=== PATIENT | male | born 1970 | race Caucasian/White ===

== ENCOUNTER 2019-12-11 10:24 | Day surgery (SDC) | payer OTHER, SELFPAY ==
--- NOTE | 2019-12-11 | PATH_ITS ---
[facility] Accession Number: [id number] . 01 Material submitted: . colon - DESCENDING COLON POLYP . 02 Diagnosis: Descending Colon, Polyp: Tubular adenoma. MRV 12/12/2019 1319 Local . 02 Electronically signed: . Dionte Stoner MD, PhD, Pathologist NPI- [id number] . 01 Gross description: . DESCENDING COLON POLYP: Received in formalin is 1 fragment(s) of [place], soft tissue measuring 0.3 x 0.2 x 0.2 cm submitted entirely in 1 cassette(s) /[facility] [place] 12/11/2019 2159 Local . 02 Pathologist provided ICD-10: D12.4 . 02 CPT . 260871 Performed at: 01 [facility] [place] [address] [id number] MD Luis E Walker MD Phone: [phone] Performed at: 02 [facility] [place] [address] [place], [place] [id number] MD Koki Busch MD Phone: [phone]
[2019-12-11 10:48] VITALS: BP 138/88; PULSE 61; RESP 16; TEMP 36.9; O2SAT 100; BMI 26.1
[2019-12-11] MEDS: SODIUM CHLORIDE 0.9% 1,000 ML 100 ML IV (11:04)
--- NOTE | 2019-12-11 11:14 | PM.HP.1 ---
History of Present Illness History of Present Illness Date Patient Seen: 12/11/19 Chief complaint: [id number] SCREENING COLONOSCOPY Narrative: First screening colonoscopy Patient History Family & Social History Social History: household members none Tobacco & Substance use: Tobacco type smokeless tobacco Smoking Status Former smoker alcohol intake frequency other Substance Use Type does not use Meds Home Medications and Allergies Home Medications Medication Instructions Recorded Confirmed Type fluticasone propionate #0 12/19/17 History solifenacin [Vesicare] 10 mg DAILY #0 12/19/17 12/11/19 History Allergies Allergy/AdvReac Type Severity Reaction Status Date / Time indomethacin AdvReac Verified 12/11/19 10:41 No Known Allergies Allergy Uncoded 01/17/18 12:56 Exam Vital Signs (past 8 hours): - 12/11/19 10:48 Temperature 98.4 F Pulse Rate 61 Respiratory Rate 16 Blood Pressure 138/88 Pulse Oximetry 100 Oxygen Delivery Method Room Air Narrative Exam Narrative: Oropharynx free of lesions Chest clear to auscultation percussion Cardiac exam reveals no S3 or murmur Assessment & Plan Assessment & Plan narrative: For screening colonoscopy. Risks, benefits, alternatives have been explained.
--- NOTE | 2019-12-11 11:15 | PM.OP.ENDO ---
Operative Date/Time/Diagnoses Date of procedure: 12/11/19 Pre-op diagnosis: See indication and findings Procedure & Clinicians Study performed: Colonoscopy Same procedure as scheduled: Yes Indications: Screening Surgeon: Ang Machado Procedure Notes Procedure in detail: After informed consent was obtained the patient was placed in left lateral decubitus position. The video colonoscope was introduced to the rectum slowly advanced to cecum. Preparation was good. On slow withdrawal the mucosa was carefully examined. The scope was removed. The patient tolerated procedure well. Blood loss none Complications none Sedation Total sedation time 22 minutes Versed 9 mg fentanyl 150 mg IV titration Findings 1. Diffuse mild melanosis coli 2. 2 mm polyp seen in the descending colon Jumbo biopsy removed completely 3. Otherwise negative colonoscopy to cecum Will follow up on the biopsy results which will help determine his interval follow-up. Under to guidelines however follow-up would typically be in 7-10 years even if this 1 polyp is adenomatous.
[2019-12-11] MEDS: MIDAZOLAM 5 MG/5 ML VIAL IV (11:23)
[2019-12-11] MEDS: fentaNYL 250 MCG/5 ML INJ IV (11:23)
[2019-12-11 11:43] VITALS: BP 109/77; PULSE 65; RESP 18; TEMP 35.8; O2SAT 97
[2019-12-11 11:48] VITALS: BP 109/76; PULSE 65; RESP 18; O2SAT 97
[2019-12-11 11:53] VITALS: BP 115/85; PULSE 63; RESP 16; TEMP 36.3; O2SAT 98
--- NOTE | 2019-12-11 12:06 | SUR.PHASEII ---
pt states he is ready to go home pt got dressed and his aunt will pick him up by ER.
== END 2019-12-11 12:09 | disposition home or self-care (01) ==
PROVIDERS: Referring Provider Internal Medicine Gastroenterology; Visit Provider Internal Medicine Gastroenterology
PROC: 0DJD8ZZ Inspection of Lower Intestinal Tract, Via Natural or Artificial Opening Endoscopic (ICD-10-PCS; CPT 45378; principal; 2019-12-11 12:30)
DX: Z12.11 Encounter for screening for malignant neoplasm of colon (principal); K63.89 Other specified diseases of intestine; D12.4 Benign neoplasm of descending colon
CPT/HCPCS: 45380; J2250; J3010

== ENCOUNTER → 2023-03-29 13:14 | Outpatient (CLI) | payer OTHER, SELFPAY ==
[2023-03-29 14:06] LABS: Add Manual Diff / Slide Review NO; Basophils Absolute Auto 0 /uL (0-100); Basophils Percent Auto 0.2 % (0-2); Eosinophils Absolute Auto 0 /uL (0-450); Eosinophils Percent Auto 0.8 % (2-4); Hematocrit 41.8 % (41-53); Hemoglobin 14.3 g/dL (13.5-17.5); Lymphocytes Absolute Auto 1800 /uL (1100-4500); Lymphocytes Percent Auto 27.3 % (25-40); Mean Corpuscular HGB Conc 34.1 % (30-36); Mean Corpuscular Hemoglobin 31.2 PG (26-34); Mean Corpuscular Volume 91.5 fL (80-100); Monocytes Absolute Auto 500 /uL (0-900); Monocytes Percent Auto 7.8 % (3-14); Neutrophils Absolute Auto 4200 /uL (1500-7000); Neutrophils Percent Auto 63.9 % (50-75); Platelet Count 220 X10^3/uL (150-400); Red Blood Cell Count 4.57 X10^6/uL (4.5-5.9); Red Cell Distribution Width 13.3 % (11.6-14.8); White Blood Cell Count 6.6 X10^3/uL (4.5-11.0)
[2023-03-29 14:41] LABS: Alanine Aminotransferase 22 IU/L (<50); Albumin 4.4 g/dL (3.5-5.0); Albumin Globulin Ratio 1.9 (1.0-2.8); Alkaline Phosphatase 55 U/L (38-126); Aspartate Aminotransferase 27 IU/L (17-59); BUN Creatinine Ratio 15.6 (6-22); Bilirubin Total 1.8 mg/dL (0.2-1.3); Blood Urea Nitrogen 19 mg/dL (9-20); C-Reactive Protein Quant < 0.5 mg/dL (<1.0); Calcium 9.5 mg/dL (8.4-10.2); Carbon Dioxide 29 mmol/L (22-32); Chloride 103 mmol/L (98-107); Cholesterol 156 mg/dL (140-199); Estimated Glomerular Filt Rate > 60 mL/min (>60); Globulin 2.3 g/dL (1.7-4.1); Glucose 92 mg/dL (70-100); HDL Cholesterol 48 mg/dL (40-60); HEMOLYSIS < 15 (0-50); LDL Cholesterol Calculated 95 mg/dL (<100); Potassium 3.8 mmol/L (3.4-5.1); Sodium 140 mmol/L (137-145); Total Protein 6.7 g/dL (6.3-8.2); Triglycerides 66 mg/dL (35-150)
[2023-03-29 15:03] LABS: Prostate Specific Antigen Scrn 1.46 ng/mL (0.1-4.0)
[2023-03-29 16:55] LABS: Erythrocyte Sedimentation Rate 1 MM/HR (0-15)
== END ==
PROVIDERS: PCP Family Medicine; Referring Provider Family Medicine; Visit Provider Family Medicine
DX: B35.1 Tinea unguium (principal); E78.5 Hyperlipidemia, unspecified; I10 Essential (primary) hypertension; N32.81 Overactive bladder; T78.40XA Allergy, unspecified, initial encounter; Z12.5 Encounter for screening for malignant neoplasm of prostate
CPT/HCPCS: 36415; 80053; 80061; 85025; 85651; 86140; G0103

== ENCOUNTER → 2023-04-03 15:20 | Outpatient (CLI) | payer OTHER, SELFPAY ==
[2023-04-07 08:25] LABS: Percent Free Testosterone 2.26 % (1.50-4.20); Testosterone Free 12.87 ng/dL (5.00-21.00); Testosterone Total 569.4 ng/dL (264.0-916.0)
[2023-04-07 22:58] LABS: Estrogen 120 pg/mL (56-213)
== END ==
PROVIDERS: PCP Family Medicine; Referring Provider Family Medicine; Visit Provider Family Medicine
DX: N52.9 Male erectile dysfunction, unspecified (principal); R79.89 Other specified abnormal findings of blood chemistry
CPT/HCPCS: 36415; 82672; 84402; 84403

== ENCOUNTER → 2024-04-04 07:59 | Outpatient (CLI) | payer OTHER, SELFPAY ==
[2024-04-04 09:23] LABS: Alanine Aminotransferase 54 IU/L (<50); Albumin 4.1 g/dL (3.5-5.0); Albumin Globulin Ratio 1.6 (1.0-2.8); Alkaline Phosphatase 52 U/L (38-126); Aspartate Aminotransferase 50 IU/L (17-59); BUN Creatinine Ratio 18.6 (6-22); Bilirubin Total 1.2 mg/dL (0.2-1.3); Blood Urea Nitrogen 22 mg/dL (9-20); Calcium 9.3 mg/dL (8.4-10.2); Carbon Dioxide 30 mmol/L (22-32); Chloride 103 mmol/L (98-107); Cholesterol 180 mg/dL (140-199); Estimated Glomerular Filt Rate > 60 mL/min (>60); Globulin 2.5 g/dL (1.7-4.1); Glucose 86 mg/dL (70-100); HDL Cholesterol 54 mg/dL (40-60); HEMOLYSIS < 15 (0-50); LDL Cholesterol Calculated 114 mg/dL (<100); Potassium 4.5 mmol/L (3.4-5.1); Sodium 138 mmol/L (137-145); Total Protein 6.6 g/dL (6.3-8.2); Triglycerides 62 mg/dL (35-150)
[2024-04-04 09:28] LABS: High Sensitivity CRP - Cardiac < 0.3 mg/L (1.0-3.0)
[2024-04-04 09:55] LABS: Prostate Specific Antigen Scrn 1.02 ng/mL (0.1-4.0)
== END ==
LOC: LAB 08:00
PROVIDERS: PCP Family Medicine; Referring Provider Family Medicine; Visit Provider Family Medicine
DX: Z00.00 Encounter for general adult medical examination without abnormal findings (principal); Z12.5 Encounter for screening for malignant neoplasm of prostate
CPT/HCPCS: 36415; 80053; 80061; 86140; G0103

== ENCOUNTER → 2025-04-03 08:54 | Outpatient (CLI) | payer OTHER, SELFPAY ==
[2025-04-03 09:55] LABS: Alanine Aminotransferase 26 IU/L (<50); Albumin 4.6 g/dL (3.5-5.0); Albumin Globulin Ratio 1.8 (1.0-2.8); Alkaline Phosphatase 52 U/L (38-126); Aspartate Aminotransferase 32 IU/L (17-59); BUN Creatinine Ratio 21.5 (6-22); Bilirubin Total 1.3 mg/dL (0.2-1.3); Blood Urea Nitrogen 23 mg/dL (9-20); Calcium 9.7 mg/dL (8.4-10.2); Carbon Dioxide 28 mmol/L (22-32); Chloride 102 mmol/L (98-107); Cholesterol 231 mg/dL (140-199); Estimated Glomerular Filt Rate > 60 mL/min (>60); Globulin 2.5 g/dL (1.7-4.1); Glucose 91 mg/dL (70-99); HDL Cholesterol 49 mg/dL (40-60); HEMOLYSIS < 15 (0-50); LDL Cholesterol Calculated 161 mg/dL (<100); Potassium 4.3 mmol/L (3.4-5.1); Sodium 138 mmol/L (137-145); Total Protein 7.1 g/dL (6.3-8.2); Triglycerides 103 mg/dL (35-150)
[2025-04-03 10:26] LABS: Prostate Specific Antigen Scrn 1.16 ng/mL (0.1-4.0)
[2025-04-04 08:09] LABS: CRP, High Sensitivity 0.63 mg/L (0.00-3.00)
== END ==
PROVIDERS: PCP Family Medicine; Referring Provider Family Medicine; Visit Provider Family Medicine
DX: Z00.00 Encounter for general adult medical examination without abnormal findings (principal); N52.9 Male erectile dysfunction, unspecified; Z12.5 Encounter for screening for malignant neoplasm of prostate; Z98.890 Other specified postprocedural states; K08.409 Partial loss of teeth, unspecified cause, unspecified class
CPT/HCPCS: 36415; 80053; 80061; 86140; G0103